=== PATIENT | male | born 1995 | race Caucasian/White ===

== ENCOUNTER 2020-04-10 15:32 | Emergency (ER) | payer SELFPAY ==
--- NOTE | ~2020-04-10 | XR_ITS ---
XR hand RT min 3V DATE: 04/10/2020 15:52 INDICATION: Punched a wall 3 days ago. Right hand pain. TECHNIQUE: 3 views COMPARISON: None FINDINGS: There are some small bony densities dorsally at the carpal-metacarpal area on the lateral v iew, uncertain significance, possibly degenerative change versus small cortical avulsion fractures of uncertain age. Clinical correlation for point tenderness is advised. CT evaluation may be of benefit as clinically appropriate. Otherwise no fracture or dislocation, periosteal reaction or bone destruction. IMPRESSION: Small bony densities at the dorsal aspect of the carpometacarpal area, possibly degenerat reina versus small cortical avulsion fractures of undetermined age. Recommend clinical correlation and perhaps CT as clinically appropriate Reviewed, dictated and finalized at location A. IMPRESSION: Small bony densities at the dorsal aspect of the carpometacarpal ar ea, possibly degenerative versus small cortical avulsion fractures of undetermi yessenia age. Recommend clinical correlation and perhaps CT as clinically appropriat e
[2020-04-10 15:41] VITALS: BP 107/93; PULSE 93; RESP 16; TEMP 37.3; O2SAT 99
--- NOTE | 2020-04-10 15:53 | ED.UPPEXIN ---
HPI - Extremity Injury (Upper) General Chief Complaint: Extremity Injury, Upper Stated Complaint: Hand injury Time Seen by Provider: 04/10/20 15:43 Source: patient and RN notes reviewed Mode of arrival: ambulatory Limitations: no limitations History of Present Illness HPI narrative: Patient presents today complaining of an injury to his right hand. He punched an exterior wooden wall 3 days ago. States swelling and range of motion have improved since onset. Denies numbness or tingling in the hand or fingers. He is currently pain-free, and experiences pain when he tries to hold an object in his hand. He has tried no medications, but did apply ice for swelling. MD complaint: injury to: right and hand Related Data Allergies Allergy/AdvReac Type Severity Reaction Status Date / Time amoxicillin Allergy Intermediate RASH Verified 10/16/19 12:32 Penicillins Allergy Unknown RASH Verified 10/16/19 12:32 Review of Systems Review of Systems: Narrative: CONSTITUTIONAL: Denies body aches, fever, chills, or sweats. EYES: Denies visual changes, redness, or discharge. ENT: Denies rhinorrhea, congestion, sore throat, or otalgia. CARDIOVASCULAR: Denies chest pain, palpitations, or edema. RESPIRATORY: Denies cough or dyspnea. GASTROINTESTINAL: Denies abdominal pain, nausea, vomiting, or diarrhea. GENITOURINARY: Denies dysuria or hematuria. SKIN: Denies rash, itching, or wounds. MUSCULOSKELETAL: Denies back pain, or myalgia. + Right hand injury NEUROLOGIC: Denies headache, numbness, tingling, or weakness. PSYCH: Denies depression or anxiety. [facility] Social History Social History (Updated 10/16/19 @ 12:41 by Bg Beal PA-C) Smoking status: Current every day smoker Comments At time of signature, I have reviewed and agree with nursing past medical, surgical, social and family history unless otherwise noted. Please see nursing chart for further information. There is no relevant family history pertinent to the presenting complaint Exam Narrative: Exam Narrative: GENERAL: Well-appearing, well-nourished, and in no acute distress. HEAD: Normocephalic, atraumatic. EYES: EOMI. No redness or drainage. Conjunctivae normal. ENT: Mucous membranes pink and moist. NECK: Normal AROM. CHEST: No respiratory distress. EXTREMITIES: Right hand: Mild tenderness to the base of the third and fourth metacarpals, but is otherwise nontender. Dorsum of the hand is mildly edematous with mild ecchymosis. Wrist is normal. Range of motion of fingers is normal. Distal sensation intact. Capillary refill normal. Radial pulse normal. SKIN: Warm, dry, no rash. Capillary refill normal. Normal skin turgor. NEURO: No focal deficits. Alert and oriented x3. Gait steady. PSYCH: Normal affect. No signs of depression or anxiety. Course Vital Signs Vital signs: Vital Signs Temperature 99.1 F 04/10/20 15:41 Pulse Rate 93 04/10/20 15:41 Respiratory Rate 16 04/10/20 15:41 Blood Pressure 107/93 H 04/10/20 15:41 Pulse Oximetry 99 04/10/20 15:41 Temperature 99.1 F 04/10/20 15:41 Pulse Rate 93 04/10/20 15:41 Respiratory Rate 16 04/10/20 15:41 Blood Pressure 107/93 H 04/10/20 15:41 Pulse Oximetry 99 04/10/20 15:41 Reviewed. Pt has been instructed to follow up with his PCP regarding his elevated blood pressure today. MDM - Extremity Injury (Upper) Differential Diagnosis Differential diagnosis: Likely other (Contusion, hand fracture, hand sprain) Imaging Data Radiologist's impression: ITS Impressions Hand X-Ray 04/10/20 15:53 IMPRESSION: Small bony densities at the dorsal aspect of the carpometacarpal area, possibly degenerative versus small cortical avulsion fractures of undetermined age. Recommend clinical correlation and perhaps CT as clinically appropriate Critical Care Time Critical Care Time Critical Care Time: No Discharge Plan Discharge Clinical Impression: Injury of hand, right Qualifiers:
== END 2020-04-10 16:27 | disposition home or self-care (01) ==
PROVIDERS: Emergency Provider Nurse Practitioner
DX: S69.91XA Unspecified injury of right wrist, hand and finger(s), initial encounter (principal); W22.8XXA Striking against or struck by other objects, initial encounter; F17.200 Nicotine dependence, unspecified, uncomplicated
CPT/HCPCS: 73130; 99213; G0463

== ENCOUNTER 2022-10-14 02:55 | Emergency (ER) | payer OTHER, SELFPAY ==
[2022-10-14 02:57] VITALS: BP 139/93; PULSE 72; RESP 12; TEMP 36.4; O2SAT 100
--- NOTE | 2022-10-14 05:22 | ED.DENTAL ---
HPI - Dental/Oral General Chief complaint: Dental/Oral Stated complaint: dental pain Time Seen by Provider: 10/14/22 04:46 History of Present Illness HPI Narrative: Patient is a 27-year-old male who presents ER with right-sided dental pain. Lower jaw and aching over the last couple weeks. Over the last 2 days since increase in pain and tonight he cannot sleep as pain is radiating into his ear. No facial swelling. No difficulty breathing or swallowing. Has known fractures to his teeth with out any acute recent fracture. Related Data Allergies Allergy/AdvReac Type Severity Reaction Status Date / Time amoxicillin Allergy Intermediate RASH Verified 10/14/22 04:43 Penicillins Allergy Unknown RASH Verified 10/14/22 04:43 Review of Systems Constitutional: Constitutional: Denies chills and Denies fever(s) ENT: Denies dysphagia, Denies nasal congestion and Denies sore throat Comments: Dental pain + Respiratory: Respiratory: Denies cough and Denies dyspnea PMFSH Social History Social History (Updated 10/16/19 @ 12:41 by Bg Beal, JOSE MARTIN) Smoking status: Current every day smoker Exam Narrative: GENERAL: Well-appearing, well-nourished, and in no acute distress. HEAD: Normocephalic, atraumatic. ENT: Mucous membranes moist. Multiple fractured teeth but tender at 30 and 29. No fluctuant abscess. No facial swelling. Normal posterior oropharynx. NEURO: Alert and oriented x3. PSYCH: Normal mood and affect. Course Course Emergency Course: Discussed treatment plan with patient who verbalized agreement and understanding. Will be placed on antibiotics as well as pain medication. No fluctuant abscess that can be drained. Vital Signs Vital signs: Vital Signs Temperature 97.6 F 10/14/22 02:57 Pulse Rate 72 10/14/22 02:57 Respiratory Rate 12 10/14/22 02:57 Blood Pressure 139/93 H 10/14/22 02:57 Pulse Oximetry 100 10/14/22 02:57 Oxygen Delivery Room Air 10/14/22 02:57 Temperature 97.6 F 10/14/22 02:57 Pulse Rate 72 10/14/22 02:57 Respiratory Rate 12 10/14/22 02:57 Blood Pressure 139/93 H 10/14/22 02:57 Pulse Oximetry 100 10/14/22 02:57 Oxygen Delivery Room Air 10/14/22 02:57 Discharge Plan Discharge Clinical Impression: Toothache Patient Disposition: Home, Self-Care Condition: Stable Instructions: Antibiotic Form, Toothache (ED) Additional Instructions: You may have a developing infection causing your dental pain. You have been prescribed an antibiotic to help with treatment. You may also take Tylenol with hydrocodone to help with pain. Arrange follow-up with a dentist for further treatment and evaluation. He may also benefit from use of dental wax to help prevent discomfort. Prescriptions: New clindamycin HCl 150 mg capsule 450 mg PO TID 7 Days Qty: 63 0RF hydrocodone-acetaminophen 5-325 mg tablet 1 tablet PO Q6H Qty: 12 0RF Follow-up/Referrals: Dental Referral Line [Outside] - 1 Week Mari Segal DO [Primary Care Provider] -
[2022-10-14 05:35] VITALS: BP 129/87; PULSE 98; RESP 17; O2SAT 99
[2022-10-14] MEDS: HYDROcodone/acetaminophen (*CRX) 5-325 MG TABLET 1 TAB PO (05:35)
== END 2022-10-14 05:35 | disposition home or self-care (01) ==
PROVIDERS: Emergency Provider Emergency Medicine; PCP Family Medicine
DX: K08.89 Other specified disorders of teeth and supporting structures (principal); F17.200 Nicotine dependence, unspecified, uncomplicated
CPT/HCPCS: 99283; A9270

== ENCOUNTER 2022-12-14 16:01 | Emergency (ER) | payer OTHER, SELFPAY ==
[2022-12-14 16:07] VITALS: BP 146/79; PULSE 97; RESP 16; TEMP 36.4; O2SAT 98
--- NOTE | 2022-12-14 16:26 | PC.NURSE ---
Patient states that he took 800mg PO ibuprofen at 1530 today for pain.
--- NOTE | 2022-12-14 16:44 | ED.DENTAL ---
HPI - Dental/Oral General Chief complaint: Dental/Oral Stated complaint: toothache Time Seen by Provider: 12/14/22 16:14 History of Present Illness HPI Narrative: 27-year-old male reports for evaluation of a left lower tooth ache that has been occurring for 2 to 3 weeks. States the pain at times radiates into his left ear. Pt reports coming to the ED in the past for the same toothache, however has not had time to see a dentist. Patient reports he did not take the clindamycin as prescribed, therefore he had multiple doses left and resumed the clindamycin 1 week ago. He has been taking clindamycin for 7 days at this time. Denies fever, body aches, chills, trismus, difficulty swallowing, facial swelling, CP, SOB, shortness of breath. Related Data Allergies Allergy/AdvReac Type Severity Reaction Status Date / Time amoxicillin Allergy Intermediate RASH Verified 12/14/22 16:03 Penicillins Allergy Unknown RASH Verified 12/14/22 16:03 Review of Systems Review of Systems: CONSTITUTIONAL: Denies fever, chills EYES: Denies visual changes, redness, or discharge. ENT: Denies rhinorrhea, congestion, sore throat CARDIOVASCULAR: Denies chest pain, palpitations, or edema. RESPIRATORY: Denies cough or dyspnea. GASTROINTESTINAL: Denies abdominal pain, nausea, vomiting, or diarrhea. GENITOURINARY: Denies dysuria or hematuria. SKIN: Denies rash or itching. MUSCULOSKELETAL: Denies back pain, joint pain, or myalgia. NEUROLOGIC: Denies headache, numbness, dizziness, or weakness. PSYCHIATRIC: Denies anxiety or depression. PMFSH Social History Social History Smoking status: Current every day smoker Exam Narrative: GENERAL: Well-appearing, well-nourished, and in no acute distress. Patient sitting in exam bed. Pleasant and conversational HEAD: Normocephalic, atraumatic. EYES: PERRLA and EOMI. ENT: Nares clear, no rhinorrhea or epistaxis. Mucous membranes moist. Oropharynx without tonsillar hypertrophy exudate or other lesions. #32 Fractured tooth with caries and plaque. No pustule visualized. No gingival or buccal mucosa induration or fluctuation, trismus or facial erythema. Floor of mouth soft and pink. Airway patent. Bilateral TMs pearly parikh nonbulging. Ear canals without exudate or erythema. No tenderness over mastoid process. No pain with auricle movement. NECK: Supple. No adenopathy or masses. No carotid bruits or JVD CHEST: Clear to auscultation. No respiratory distress. No wheezes rales or rhonchi HEART: Regular rate and rhythm. No murmur heard. Normal peripheral pulses. ABDOMEN: Soft, nontender, nondistended, normal active bowel sounds. EXTREMITIES: Normal range of motion. No edema. SKIN: Warm, dry, no rash. NEURO: No focal deficits. Alert and oriented x3. PSYCH: Normal mood and affect. HENMT: Teeth image: 1. Fractured tooth with caries. No gingival induration or fluctuation. No pustule visualized. Course Vital Signs Vital signs: Vital Signs Temperature 97.5 F L 12/14/22 16:07 Pulse Rate 97 12/14/22 16:07 Respiratory Rate 16 12/14/22 16:07 Blood Pressure 146/79 H 12/14/22 16:07 Pulse Oximetry 98 12/14/22 16:07 Temperature 97.5 F L 12/14/22 16:07 Pulse Rate 97 12/14/22 16:07 Respiratory Rate 16 12/14/22 16:07 Blood Pressure 146/79 H 12/14/22 16:07 Pulse Oximetry 98 12/14/22 16:07 MDM - Dental/Oral MDM Narrative Medical decision making narrative: 27-year-old male reports for evaluation of right lower tooth pain x2 to 3 weeks. Exam reveals a fractured #32 tooth with caries and plaque. No areas of induration or fluctuation or pustules to gingiva, buccal mucosa. No erythema or areas of tenderness to overlying cheek. No trismus. No airway compromise. Patient was seen on 10/14 for same complaint and never followed up with a dentist. He was prescribed clindamycin at that time but did not take the medication as prescribed. He
[2022-12-14] MEDS: HYDROcodone/acetaminophen (*CRX) 5-325 MG TABLET 1 TAB PO (16:49)
[2022-12-14 17:22] VITALS: BP 148/89; PULSE 94; RESP 16; TEMP 37.1; O2SAT 98
== END 2022-12-14 17:24 | disposition home or self-care (01) ==
PROVIDERS: Emergency Provider Physician Assistant; PCP Family Medicine
DX: K02.9 Dental caries, unspecified (principal)
CPT/HCPCS: 99283; A9270

== ENCOUNTER 2024-06-15 18:55 | Emergency (ER) | payer OTHER, SELFPAY ==
--- NOTE | ~2024-06-15 | XR_ITS ---
XR chest 1V portable Ordering provider: Brodie Salinas MD History: 29 years Male with . left sided CP AND LOWER LEFT ANTERIOR RIB PAIN . Comparison: None. FINDINGS: MEDIASTINUM: The cardiac silhouette is not enlarged. LUNGS: No infiltrates, effusions or pneumothorax. OTHER: No free air under the diaphragm. IMPRESSION: No acute cardiopulmonary pathology. Reviewed, dictated and finalized at location A.
[2024-06-15 18:57] VITALS: BP 122/83; PULSE 76; RESP 16; TEMP 36.8; O2SAT 100
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
== END 2024-06-15 20:16 | disposition home or self-care (01) ==
PROVIDERS: Emergency Provider Emergency Medicine
DX: S20.219A Contusion of unspecified front wall of thorax, initial encounter (principal); V89.2XXA Person injured in unspecified motor-vehicle accident, traffic, initial encounter; F17.210 Nicotine dependence, cigarettes, uncomplicated
CPT/HCPCS: 71045; 99283

== ENCOUNTER 2024-12-02 13:37 | Emergency (ER) | payer SELFPAY ==
[2024-12-02 13:50] VITALS: BP 127/78; PULSE 88; RESP 16; TEMP 36.4; O2SAT 99
--- NOTE | 2024-12-02 14:00 | ED_ITS ---
HPI - Extremity Problem General Chief complaint: Extremity Problem,Nontraumatic Stated complaint: back/leg pain left side Time Seen by Provider: 12/02/24 14:00 Source: patient Mode of arrival: ambulatory Limitations: no limitations History of Present Illness HPI Narrative: Luis Enrique is a 29-year-old male patient presenting to the clinic today with complaints of left hip pain. He reports he had left-sided posterior back pain with pain radiating down his left leg few days ago and this has resolved but now is having some left hip pain from stretching due to his back pain. Is having pain in the lateral and anterior left hip and radiating down the front of his leg. He is having a hard time getting in a comfortable position due to the pain Related Data Home Medications ?Medication ?Instructions ?Recorded ?Confirmed ?Last Taken ?Type No Home Medications 12/02/24 12/02/24 Unknown History Allergies Allergy/AdvReac Type Severity Reaction Status Date / Time amoxicillin Allergy Intermediate RASH Verified 12/02/24 13:58 Penicillins Allergy Unknown RASH Verified 12/02/24 13:58 Review of Systems Review of Systems: Pertinent positives per HPI. Patient denies any fever, chills, rash, headache, visual changes, dizziness, cough, shortness of breath, chest pain, palpitations, nausea, vomiting, diarrhea, constipation, abdominal pain, or any urinary issues. PMFSH Social History Social History Smoking status: Current every day smoker Comments At the time of my signature, I reviewed and agree with the nursing past medical, surgical, social, and family history. There is no relevant family history pertinent to the patient complaint. Exam Narrative: General: Well-developed, well nourished, in no apparent distress Head: Normocephalic, atraumatic. Cardio: Regular rate and rhythm, s1 and s2 normal, no murmur appreciated. Resp: Clear to auscultation bilaterally, no rhonchi, rales, wheezing or rubs. Musculoskeletal: No deformity, non-tender to palpation, pain to the left lateral and anterior hip joint with pain radiating down the front to the leg, grossly normal range of motion, muscle strength strong and equal in BLE. SLT negative, patellar reflexes 2/4 bilaterally, negative foot drop, normal gait and station Course Course Emergency Course: Portions of this record may have been created with voice recognition software. Level of Care: Express Care Visit Vital Signs Vital signs: Vital Signs Temperature 36.4 C 12/02/24 13:50 Pulse Rate 88 12/02/24 13:50 Respiratory Rate 16 12/02/24 13:50 Blood Pressure 127/78 12/02/24 13:50 Pulse Oximetry 99 12/02/24 13:50 Oxygen Delivery Room Air 12/02/24 13:50 Temperature 36.4 C 12/02/24 13:50 Pulse Rate 88 12/02/24 13:50 Respiratory Rate 16 12/02/24 13:50 Blood Pressure 127/78 12/02/24 13:50 Pulse Oximetry 99 12/02/24 13:50 Oxygen Delivery Room Air 12/02/24 13:50 Vital signs reviewed MDM - Extremity (Nontraumatic) MDM Narrative Medical decision making narrative: At the time of visit patient is resting comfortably on the exam table. Patient appears to be nontoxic. Plan: I suspect patient has acute left hip pain. Prescription for Medrol Dosepak and muscle relaxer was sent to the pharmacy. Supportive measures were discussed with the patient and they voiced understanding discharge instructions and agrees to treatment plan. Return precautions reviewed Differential Diagnosis Differential diagnosis: Likely gout and other (Low back pain with sciatica, hip pain with radiculopathy,osteoarthritis of the left hip, hip bursitis, muscle strain) Discharge Plan Discharge Clinical Impression: Acute pain of left hip Patient Disposition: Home, Self-Care Condition: Stable Instructions: Antibiotic Form, Hip Pain (ED) Additional Instructions: Take any prescription medication only as prescribed-cyclobenzaprine and Medrol Dosepak Be mindful of sedation precautions given to you if taking a muscle relaxer. May use heat or ice to the affected area Consider massage or chiropractor adjustment if this was discussed with provider May use blue emu, lidocaine patches, or asper cream to affected area- do not apply heat or ice directly over cream- can cause burn. Follow up with your PCP in 3-5 days if symptom persist. Patient Language: Greek Prescriptions: New methylprednisolone [Medrol ([place])] 4 mg tablets,dose pack See Rx Instructions PO .COMPLEX Qty: 21 0RF Rx Instructions: orally per package directions cyclobenzaprine 10 mg tablet 10 mg PO Q8H PRN (Reason: muscle spasm) 7 Days Qty: 21 0RF No Action No Home Medications Follow-up/Referrals: PHYSICIAN,RISK MANAGEMENT PROFESSIONAL [Primary Care Provider] - Stand Alone Forms: Work/School Release IP Time of Disposition: 14:01 Quality NIHSS Nursing Documentation ED NIHSS nursing documentation: reviewed/agree
== END 2024-12-02 14:06 | disposition home or self-care (01) ==
PROVIDERS: Emergency Provider Nurse Practitioner Family
DX: M25.552 Pain in left hip (principal); F17.200 Nicotine dependence, unspecified, uncomplicated
CPT/HCPCS: 99213; G0463